=== PATIENT | female | born 1965 | race Caucasian/White ===

== ENCOUNTER 2017-03-23 12:30 | Emergency (ER) | payer SELFPAY ==
[~2017-03-23] VITALS: Ht 154.9 cm; Wt 106.5 kg
[~2017-03-23 12:30] MED LIST: FLUC150T PO; GLIP10TA67 PO; GLUCTAB OR; IBUP800T23 PO; MACR100C PO
[2017-03-23 12:31] VITALS: BP 180/84; PULSE 85; RESP 18; TEMP 98.8; O2SAT 99
[2017-03-23 14:34] VITALS: BP 174/85; PULSE 89; RESP 19; O2SAT 98
--- NOTE | 2017-03-23 14:55 | PD ---
HPI Chief Complaint: Numbness/Tingling Time Seen by Provider: 14:47 Travel History International Travel<30 days: No Contact w/Intl Traveler<30days: No Traveled to known affect area: No History of Present Illness HPI 51-year-old female presents to the emergency Department with complaint of right ear pain that started this morning while at work. Reports decreased hearing. Reports numbness and tingling to her right head and face that also started right after the ear pain. Denies fever, vomiting. Has been sick with cold symptoms for the past few days, including nasal congestion and cough. He has not taken any medications or tried any treatments to alleviate her symptoms. No known aggravating or relieving factors. Rates pain 9/10 and describes it as a throbbing sensation. Allergies to penicillin. History of diabetes mellitus. No primary care provider. Has no other medical complaints. No other modified factors or associated signs and symptoms. PFSH Past Medical History Anxiety: No Depression: No Diabetes: Yes Patient Takes Glucophage: Yes Diminished Hearing: No Hypertension: No (ON LISINOPRIL ,STATES TO PROTECT HER LIVER DUE TO METFORMIN) Immunizations Current: No Tetanus Vaccination: Unknown Influenza Vaccination: No ?: Not : 3 Para: 3 Past Surgical History Section: Yes (X 3) Gynecologic Surgery: Yes (3 CSECTIONS) Social History Alcohol Use: Yes (SOCIALLY) Tobacco Use: No Substance Use: No Allergies-Medications (Allergen,Severity, Reaction): Coded Allergies: penicillin G (Unverified Allergy, Severe, 03/23/17) Reported Meds & Prescriptions Reported Meds & Active Scripts Active Ibuprofen 800 Mg Tab 800 Mg PO Q6HR PRN Azithromycin 500 Mg Tab 500 Mg PO DAILY Review of Systems Except as stated in HPI: all other systems reviewed are Neg Physical Exam Narrative GENERAL: Well-nourished, well-developed female patient, in no acute distress; afebrile, nontoxic-appearing SKIN: Warm and dry. No rash. HEAD: Atraumatic. Normocephalic. EYES: Pupils equal and round. No scleral icterus. No injection or drainage. PERRLA. EOMI. No facial droop noted. Tongue midline. ENT: Mucosa pink and moist. No erythema or exudates. No uvular edema. No uvular , palatal, or tonsillar deviation. Airway patent. EARS: Bilateral pinnae and external canals appear within normal limits. Right tympanic membrane with dullness, loss of landmarks and completely dora out TM consistent with effusion. Left tympanic membranes without erythema, dullness or perforation. NECK: Trachea midline. No lymphadenopathy. CARDIOVASCULAR: Regular rate. RESPIRATORY: No accessory muscle use. GASTROINTESTINAL: Obese. MUSCULOSKELETAL: No obvious deformities. No clubbing. No cyanosis. No edema. NEUROLOGICAL: Awake and alert. Oriented 3. No obvious cranial nerve deficits. Motor grossly within normal limits. Normal speech. Moves all extremities. 5/5 strength to all extremities. PSYCHIATRIC: Appropriate mood and affect; insight and judgment normal. Data Data Last Documented VS Vital Signs Date Time Temp Pulse Resp B/P (MAP) Pulse Ox O2 Delivery O2 Flow Rate FiO2 03/23/17 14:34 89 19 174/85 (114) 98 Room Air 03/23/17 12:31 98.8 Orders Orders Ketorolac Inj (Toradol Inj) (03/23/17 15:30) Lidocaine 1% Inj (50 Ml) (Xylocaine 1% I (03/23/17 15:30) Ceftriaxone Inj (Rocephin Inj) (03/23/17 15:30) Ed Discharge Order (03/23/17 15:23) Lidocaine Pf 1% Inj (Xylocaine-Mpf 1% In (03/23/17 15:34) [facility] Medical Decision Making Medical Screen Exam Complete: Yes Emergency Medical Condition: Yes Medical Record Reviewed: Yes Differential Diagnosis Otitis media, otitis externa, cerumen impaction, facial nerve palsy, Hooper's palsy Narrative Course 51-year-old female physical exam consistent with right otitis media. Neurologically intact. No facial droop noted. I discussed the patient with Dr. Encarnacion and he agrees with discharge. Rocephin, Toradol administered in the ER. Azithromycin and ibuprofen prescribed for home. Instructed patient to follow up with primary care provider. Patient verbalizes understanding and agreement with treatment plan. Patient is medically cleared and stable for discharge. Discussed reasons to return to the emergency department. Patient agrees with treatment plan. The patients vital signs are stable and the patient is stable for outpatient follow-up and treatment. Patient discharged home, stable and in no acute distress. Diagnosis Primary Impression: Right otitis media Qualified Codes: H66.91 - Otitis media, unspecified, right ear Referrals: [facility] Primary Care Physician Patient Instructions: General Instructions, Serous Otitis Media (ED) Additional Instructions: Take antibiotics as prescribed and complete full course Ibuprofen or Tylenol as directed and as needed to reduce pain and fever [id number] antihistamines or decongestants as directed and as needed for symptom management Avoid getting water in the ears Do not put anything in the ears; including Q-tips Follow-up with primary care provider Return to the emergency department immediately with worsening of symptoms Med/Other Pt SpecificInfo: Prescription(s) given Scripts Ibuprofen (Ibuprofen) 800 Mg Tab 800 MG PO Q6HR Y for PAIN, #30 TAB 0 Refills Prov: Lisa Chu 03/23/17 Azithromycin (Azithromycin) 500 Mg Tab 500 MG PO DAILY for Infection, #5 TAB 0 Refills Prov: Lisa Chu 03/23/17 Disposition: 01 DISCHARGE HOME Condition: Stable Lisa Chu Mar 23, 2017 14:55
[2017-03-23] MEDS ORDERED: IBUP1TAB7 PO (15:22)
[2017-03-23] MEDS ORDERED: AZIT500T2 PO (15:22)
[2017-03-23] MEDS ORDERED: LIDOCAINE HCL 1% 50 ML VIAL IM ONE (15:30)
[2017-03-23] MEDS ORDERED: KETOROLAC TROMETHAMINE 60 MG/2 ML (IM) VIAL IM ONE (15:30)
[2017-03-23] MEDS ORDERED: LIDOCAINE HCL 1% PF 2 ML VIAL ONE (15:34)
== END 2017-03-23 16:16 | disposition home or self-care (01) ==
LOC: NEPD 12:30
DX: H66.91 Otitis media, unspecified, right ear (principal)
CPT/HCPCS: 96372; 99284; J0696; J1885